=== PATIENT | male | born 1980 | race Caucasian/White ===

== ENCOUNTER 2024-07-06 19:28 | Emergency (ER) | payer SELFPAY ==
[~2024-07-06] VITALS: Ht 180.3 cm; Wt 75.0 kg
[2024-07-06 19:53] LABS: BASOPHILS % (AUTO) 0.2 % (0-1); EOSINOPHILS # (AUTO) 0.2 X10'3 (0-0.9); EOSINOPHILS % (AUTO) 2.6 % (0-6); HEMATOCRIT 45.7 % (42.0-52.0); HEMOGLOBIN 15.7 g/dl (14.0-17.9); LYMPHOCYTES # (AUTO) 3.2 X10'3 (1.1-4.8); LYMPHOCYTES % (AUTO) 35.8 % (21-51); MEAN CORPUSCULAR HEMOGLOBIN 31.2 PG (27.0-31.0); MEAN CORPUSCULAR HGB CONC 34.4 g/dL (33.0-36.5); MEAN CORPUSCULAR VOLUME 90.6 FL (78-98); MEAN PLATELET VOLUME 8.6 FL (7.4-10.4); MONOCYTES # (AUTO) 0.7 X10'3 (0-0.9); MONOCYTES % (AUTO) 7.9 % (2-12); NEUTROPHILS # (AUTO) 4.8 X10'3 (1.8-7.7); NEUTROPHILS % (AUTO) 53.5 % (42-75); PLATELET COUNT 332 X10'3 (140-440); RED BLOOD COUNT 5.04 X10'6 (4.70-6.10); WHITE BLOOD COUNT 8.9 X10'3 (4.5-11.0)
[2024-07-06 20:13] LABS: ALANINE AMINOTRANSFERASE 88 U/L (12-78); ALBUMIN 4.4 G/DL (3.4-5.0); ALBUMIN/GLOBULIN RATIO 1.2 (1.1-1.5); ALKALINE PHOSPHATASE 98 IU/L (46-116); ANION GAP 12 (8-16); ASPARTATE AMINO TRANSFERASE 45 U/L (10-37); BILIRUBIN,TOTAL 0.4 MG/DL (0.1-1.0); BLOOD UREA NITROGEN 14 MG/DL (7-18); BUN/CREATININE RATIO 13.1 (10.0-20.0); CALCIUM 8.8 MG/DL (8.5-10.1); CHLORIDE 102 MMOL/L (99-107); CREATININE 1.07 MG/DL (0.60-1.10); GLUCOSE 142 MG/DL (70-104); POTASSIUM 3.5 MMOL/L (3.5-5.1); SODIUM 138 MMOL/L (135-145); TOTAL CARBON DIOXIDE 24.5 MMOL/L (24-32); eCRCL 92 ML/MIN; eGFR 75 ML/MIN
[2024-07-06 20:17] LABS: PRO BRAIN NATRIURETIC PEPTIDE < 30 PG/ML (0-125)
[2024-07-06 22:16] VITALS: BP 128/83; PULSE 62; RESP 16; TEMP 97.7; O2SAT 97
== END 2024-07-06 21:53 | disposition home or self-care (01) ==
LOC: ER 19:29
DX: Z00.00 Encounter for general adult medical examination without abnormal findings (principal)
CPT/HCPCS: 36415; 71045; 80053; 83880; 84484; 85025; 93005; 99285

== ENCOUNTER 2025-02-14 18:49 | Emergency (ER) | payer BC ==
[~2025-02-14] VITALS: Ht 182.9 cm; Wt 61.8 kg
[2025-02-14 18:51] VITALS: RESP 15; TEMP 98.6
[2025-02-14 19:11] LABS: MEAN PLATELET VOLUME 8.6 FL (7.4-10.4); RED CELL DISTRIBUTION WIDTH 13.4 % (11.5-14.5)
--- NOTE | 2025-02-14 19:25 | RADIOLOGY REPORT ---
CHEST RADIOGRAPH REASON FOR EXAM: Chest pain COMPARISON: DI CHEST,SINGLE VIEW on DOS: 07/06/24 TECHNIQUE: One view of the chest is provided FINDINGS: The cardiomediastinal silhouette is within normal limits for technique. There is no focal a irspace disease. There is no significant pleural effusion. No acute bony abnormality is identified. IMPRESSION: No radiographic evidence of acute cardiopulmonary process.
[2025-02-14 19:29] LABS: CREATININE 1.00 MG/DL (0.60-1.10); PRO BRAIN NATRIURETIC PEPTIDE < 30 PG/ML (0-125); TOTAL CARBON DIOXIDE 25.1 MMOL/L (24-32); eCRCL 81 ML/MIN; eGFR 80 ML/MIN
[2025-02-14 19:32] VITALS: BP 121/77; PULSE 59; O2SAT 98
--- NOTE | 2025-02-14 20:27 | Physician Documentation ---
History of Present Illness ~ Chief Complaint: Chest Pain Stated Complaint: CHEST PAIN Time Seen by MD: 19:03 Mode of Arrival: POV HPI 44 year old male reports sharp L - sided chest pain since last night that has become progressively worse. Denies fever, N/V/D, cough, shortness of breath, history of DVT/PE. He denies URI symptoms but reports a coworker recently was diagnosed with hand/foot/mouth. Has no personal cardiac history, no h/o DM. Medication Reconciliation Allergies: Coded Allergies: No Known Allergies (Unverified , 02/14/25) Past Medical History Smoking Status: Never smoker Review of Systems All Other Systems at this time: Reviewed and Negative Physical Exam Vital Signs: RN Vital Signs have been reviewed: Yes, Temperature: 98.6, Source: Temporal, Heart Rate: 59, Respiratory Rate: 15, BP: 121/77, Pulse Oximetry: 98, Weight: 61.750 Physical Exam HEENT: PERRL, moist oral mucosa, EOMI Pulmonary: No respiratory distress CTAB Cardiac: RRR, no murmur, rub or gallop MSK: no deformity Skin: w/d/i, no rash Neuro: alert, nonfocal Psych: normal affect Progress Results/Orders Results/Orders Orders - SULAIMAN CUMMINS MD Chest,Single View (02/14/25 19:11) Monitor (02/14/25 18:53) Saline Lock (02/14/25 18:53) Oxygen (02/14/25 18:53) Electrocardiogram (02/14/25 18:53) Hs Troponin I W Calculations (02/14/25 20:53) Hs Troponin I W Calculations (02/14/25 21:53) Completed Orders - SULAIMAN CUMMINS MD Chest,Single View (02/14/25 19:11) Cbc/Diff (02/14/25 18:53) BMP (02/14/25 18:53) PBNP (02/14/25 18:53) Hs Troponin I W Calculations (02/14/25 18:53) Vital Signs 02/14/25 02/14/25 18:51 19:32 Temp 98.6 Pulse 68 59 Resp 15 B/P (MAP) 121/77 121/77 (92) Pulse Ox 98 98 Laboratory Tests Test 02/14/25 18:58 White Blood Count 5.6 Red Blood Count 4.80 Hemoglobin 14.8 Hematocrit 42.5 Mean Corpuscular Volume 88.6 Mean Corpuscular Hemoglobin 30.9 Mean Corpuscular Hemoglobin Concent 34.9 Red Cell Distribution Width 13.4 Platelet Count 242 Mean Platelet Volume 8.6 Neutrophils (%) (Auto) 50.3 Lymphocytes (%) (Auto) 35.5 Monocytes (%) (Auto) 8.8 Eosinophils (%) (Auto) 4.4 Basophils (%) (Auto) 1.0 Neutrophils # (Auto) 2.8 Lymphocytes # (Auto) 2.0 Monocytes # (Auto) 0.5 Eosinophils # (Auto) 0.2 Basophils # (Auto) 0.1 CBC Comment Sodium Level 139 Potassium Level 3.7 Chloride Level 104 Carbon Dioxide Level 25.1 Anion Gap 10 Blood Urea Nitrogen 14 Creatinine 1.00 Estimated GFR/1.73 m2 80 BUN/Creatinine Ratio 14.0 Glucose Level 101 Calcium Level 8.8 Troponin I High Sensitivity 8 Pro-B-Type Natriuretic Peptide < 30 Albumin 3.8 Chemistry Comments Medical Decision Making Findings 44 year old male with chest pain as above. VSS, exam unremarkable. EKG interpreted by me demonstrated NSR @ rate of 68/min, nonspecific t-wave inversion in lead III, no STEMI criteria, no acute findings. CXR interpreted by me demonstrated normal contours, no PTX, no PNA, no acute findings. Workup was otherwise unremarkable as well without elevated troponins. Counseled patient, advised repeat troponin and possible observation overnight, patient refused, and refused NSAID as well. Return precautions discussed. s Differential Dx:Considerations: Include: angina, aortic dissection, chest wall pain, costochondritis, esophageal reflux/spasm, myocardial infarction, pericarditis, pleuritis, pancreatitis, pneumonia, pneumothorax, pulmonary embolus Departure Disposition: HOME / SELF CARE / HOMELESS Impression: Primary Impression: Chest pain Discharge Instructions: Nonspecific Chest Pain, Adult Referrals: NO PRIMARY CARE PROVIDER (PCP) Education Educated: Patient Educated regarding: diagnosis, treatment, prognosis, need for follow up Signature Scribe Signature: . Attestation: SULAIMAN CASTILLO MD Feb 14, 2025 20:27
--- NOTE | 2025-02-15 06:07 | ELECTROCARDIOGRAPH REPORT ---
[facility] Test Date: 2025-02-14 Test Time: 18:57:47 Pat Name: JIE MÉNDEZ Department: EMERGENCY ROOM Room: Gender: M [employer]: : 1980 Requested By: SULAIMAN CUMMINS Order Number: [id number] Reading MD: Dr. Rober Reese Measurements Intervals [place] Rate: 68 P: 32 UT: 155 QRS: 74 QRSD: 90 T: 1 QT: 379 QTc: 404 Interpretive Statements Sinus rhythm RSR' in V1 or V2, right VCD or RVH Borderline ST elevation, anterolateral leads Electronically Signed On 02-15-2025 6:16:[address] Rober Reese Please click the below link to view image of tracing.
== END 2025-02-14 20:58 | disposition home or self-care (01) ==
LOC: ER 18:50
DX: R07.89 Other chest pain (principal)
CPT/HCPCS: 36415; 71045; 80048; 83880; 84484; 85025; 93005; 99285